=== PATIENT | female | born 1930 | race Caucasian/White ===

== ENCOUNTER 2021-02-13 01:53 | Inpatient (IN) | payer BC, OTHER ==
[2021-02-13 02:49] VITALS: BMI 28.3
[2021-02-13 04:19] LABS: BASO % 0.3 % (0-2.0); HEMATOCRIT 39.6 % (32.4-45.2); HEMOGLOBIN 13.1 GM/dL (10.7-15.3); LYMPH % 7.4 % (8-40); MCH 31.7 pg (25.7-33.7); MCHC 33.1 g/dl (32.0-36.0); MEAN CELL VOLUME 95.8 fl (80-96); MONO % 5.3 % (3.8-10.2); PLATELET COUNT 193 K/MM3 (134-434); RBC 4.14 M/mm3 (3.60-5.2); RDW 15.3 % (11.6-15.6); WHITE BLOOD COUNT 15.9 K/mm3 (4.0-10.0)
[2021-02-13 04:33] LABS: CHLORIDE 102 mmol/L (98-107); SODIUM 138 mmol/L (136-145)
[2021-02-13 04:35] LABS: CALCIUM 9.6 mg/dL (8.5-10.1)
[2021-02-13 04:36] LABS: ALBUMIN 3.8 g/dl (3.4-5.0); ANION GAP 4 MMOL/L (8-16); BLOOD UREA NITROGEN 30.1 mg/dL (7-18); CO2 31 mmol/L (21-32); INR 1.03 (0.83-1.09); MAGNESIUM 1.9 mg/dL (1.8-2.4); PROTHROMBIN TIME (PATIENT) 12.4 SEC (9.7-13.0)
[2021-02-13 04:39] LABS: ACTIVATED PTT 26.7 SECONDS (25.2-36.5); CREATININE 0.9 mg/dL (0.55-1.3); SGOT/AST 29 U/L (15-37); SGPT/ALT 23 U/L (13-61)
[2021-02-13 04:41] LABS: BILIRUBIN,TOTAL 0.6 mg/dL (0.2-1); TOT PROT 7.1 g/dl (6.4-8.2)
[2021-02-13 04:42] LABS: ALK PHOS 64 U/L (45-117)
[2021-02-13 04:49] LABS: GLUCOSE,RANDOM 137 mg/dL (74-106)
[2021-02-13 09:37] LABS: EPI CELLS 3 /uL (0-25.1); HYALINE CASTS 2 /uL (0-3.1); URINE APPEARANCE TURBID; URINE BACTERIA >9,000 /uL (0-1359); URINE BILIRUBIN NEGATIVE (NEGATIVE); URINE COLOR YELLOW; URINE GLUCOSE (UA) NEGATIVE (NEGATIVE); URINE KETONE NEGATIVE (NEGATIVE); URINE LEUK ESTERASE 3+ (NEGATIVE); URINE NITRITE NEGATIVE (NEGATIVE); URINE PROTEIN NEGATIVE (NEGATIVE); URINE RBC 17 /uL (0-23.9); URINE WBC 148 /uL (0-25.8)
[2021-02-13] MEDS: SODIUM CHLORIDE 1,000 ML IV SCH (13:58)
[2021-02-13] MEDS: LEVOTHYROXINE NA 75 MCG TABLET (FP) PO SCH (13:58)
[2021-02-13] MEDS: amLODIPine BESYLATE 2.5 MG TABLET (FP) PO SCH (14:01)
[2021-02-13] MEDS: metoPROLOL SUCCINATE 25 MG TAB.SR.24H (FP) PO SCH ×2 (14:02→21:13)
[2021-02-13] MEDS: ENOXAPARIN NA (PORCINE) 40 MG/0.4 ML DISP.SYRIN SQ SCH (14:02)
[2021-02-13] MEDS ORDERED: MELATONIN 5 MG TABLETS PO ONE (20:04)
[2021-02-13] MEDS: ATORVASTATIN CA 20 MG TABLET (FP) PO SCH (21:13)
[2021-02-13] MEDS: ACETAMINOPHEN 325 MG TABLET (FP) PO PRN (22:03)
[2021-02-14] MEDS: ACETAMINOPHEN 325 MG TABLET (FP) PO PRN (06:26)
[2021-02-14] MEDS: LEVOTHYROXINE NA 75 MCG TABLET (FP) PO SCH (06:27)
[2021-02-14 08:00] LABS: BASO % 0.3 % (0-2.0); EOS % 1.8 % (0-4.5); HEMATOCRIT 37.7 % (32.4-45.2); HEMOGLOBIN 12.6 GM/dL (10.7-15.3); LYMPH % 8.5 % (8-40); MCH 31.5 pg (25.7-33.7); MCHC 33.3 g/dl (32.0-36.0); MEAN CELL VOLUME 94.6 fl (80-96); MEAN PLT VOLUME 9.7 fl (7.5-11.1); MONO % 7.1 % (3.8-10.2); NEUT % 82.3 % (42.8-82.8); PLATELET COUNT 161 K/MM3 (134-434); RBC 3.99 M/mm3 (3.60-5.2); RDW 14.7 % (11.6-15.6); WHITE BLOOD COUNT 11.3 K/mm3 (4.0-10.0)
[2021-02-14 08:11] LABS: POTASSIUM 3.8 mmol/L (3.5-5.1)
[2021-02-14 08:15] LABS: CALCIUM 9.3 mg/dL (8.5-10.1)
[2021-02-14 08:16] LABS: BLOOD UREA NITROGEN 18.8 mg/dL (7-18); MAGNESIUM 2.2 mg/dL (1.8-2.4)
[2021-02-14 08:19] LABS: BILIRUBIN,TOTAL 1.2 mg/dL (0.2-1); CREATININE 0.8 mg/dL (0.55-1.3); PHOSPHOROUS 2.6 mg/dL (2.5-4.9); TOT PROT 6.4 g/dl (6.4-8.2)
[2021-02-14 08:22] LABS: ALBUMIN 3.3 g/dl (3.4-5.0)
[2021-02-14] MEDS: ENOXAPARIN NA (PORCINE) 40 MG/0.4 ML DISP.SYRIN SQ SCH (09:48)
[2021-02-14] MEDS: metoPROLOL SUCCINATE 25 MG TAB.SR.24H (FP) PO SCH ×2 (09:48→22:27)
[2021-02-14] MEDS: amLODIPine BESYLATE 2.5 MG TABLET (FP) PO SCH (09:48)
[2021-02-14] MEDS ORDERED: METOPROLOL TARTRATE 25 MG TABLET (FP) PO SCH (10:00)
[2021-02-14] MEDS ORDERED: metoPROLOL SUCCINATE 25 MG TAB.SR.24H (FP) PO SCH (10:00)
[2021-02-14] MEDS ORDERED: DEXTROSE 5%-WATER - 50 ML IVPB ONE (12:04)
[2021-02-14] MEDS ORDERED: cefTRIAXone SODIUM 1 GM VIAL ONE (12:04)
[2021-02-14] MEDS: CEFTRIAXONE 1 GM in DEXTROSE 5%-WATER - 50 ML IVPB SCH (12:10)
[2021-02-14] MEDS: SODIUM CHLORIDE 1,000 ML IV SCH (12:11)
[2021-02-14] MEDS: ATORVASTATIN CA 20 MG TABLET (FP) PO SCH (22:27)
[2021-02-15] MEDS: LEVOTHYROXINE NA 75 MCG TABLET (FP) PO SCH (06:33)
[2021-02-15 07:35] LABS: BASO % 0.3 % (0-2.0); HEMATOCRIT 34.2 % (32.4-45.2); HEMOGLOBIN 11.5 GM/dL (10.7-15.3); LYMPH % 10.7 % (8-40); MCH 31.8 pg (25.7-33.7); MCHC 33.7 g/dl (32.0-36.0); MEAN CELL VOLUME 94.5 fl (80-96); MEAN PLT VOLUME 10.4 fl (7.5-11.1); MONO % 9.6 % (3.8-10.2); NEUT % 77.4 % (42.8-82.8); PLATELET COUNT 154 K/MM3 (134-434); RBC 3.62 M/mm3 (3.60-5.2); RDW 14.6 % (11.6-15.6); WHITE BLOOD COUNT 9.3 K/mm3 (4.0-10.0)
[2021-02-15 07:50] LABS: POTASSIUM 3.9 mmol/L (3.5-5.1)
[2021-02-15 07:52] LABS: CALCIUM 8.8 mg/dL (8.5-10.1)
[2021-02-15 07:53] LABS: BLOOD UREA NITROGEN 15.5 mg/dL (7-18)
[2021-02-15 07:56] LABS: CREATININE 0.6 mg/dL (0.55-1.3)
[2021-02-15] MEDS ORDERED: cefTRIAXone SODIUM 1 GM VIAL ONE (10:05)
[2021-02-15] MEDS ORDERED: DEXTROSE 5%-WATER - 50 ML IVPB ONE (10:05)
[2021-02-15] MEDS: metoPROLOL SUCCINATE 25 MG TAB.SR.24H (FP) PO SCH ×2 (10:09→22:29)
[2021-02-15] MEDS: ACETAMINOPHEN 325 MG TABLET (FP) PO PRN (10:09)
[2021-02-15] MEDS: CEFTRIAXONE 1 GM in DEXTROSE 5%-WATER - 50 ML IVPB SCH (10:10)
[2021-02-15] MEDS: amLODIPine BESYLATE 2.5 MG TABLET (FP) PO SCH (10:12)
[2021-02-15] MEDS: ENOXAPARIN NA (PORCINE) 40 MG/0.4 ML DISP.SYRIN SQ SCH (10:12)
[2021-02-15] MEDS: SODIUM CHLORIDE 1,000 ML IV SCH (12:10)
[2021-02-15] MEDS ORDERED: MEROPENEM 1 GM in DEXTROSE 5%-WATER 100 ML IVPB ONE (13:16)
[2021-02-15] MEDS: ERTAPENEM SODIUM 1 GM in SODIUM CHLORIDE 50 ML IVPB SCH (17:20)
[2021-02-15] MEDS: ATORVASTATIN CA 20 MG TABLET (FP) PO SCH (22:29)
[2021-02-16] MEDS: ACETAMINOPHEN 325 MG TABLET (FP) PO PRN ×2 (05:30→21:52)
[2021-02-16] MEDS: LEVOTHYROXINE NA 75 MCG TABLET (FP) PO SCH (06:05)
[2021-02-16] MEDS: ENOXAPARIN NA (PORCINE) 40 MG/0.4 ML DISP.SYRIN SQ SCH (09:32)
[2021-02-16] MEDS: metoPROLOL SUCCINATE 25 MG TAB.SR.24H (FP) PO SCH ×2 (09:32→21:52)
[2021-02-16] MEDS: amLODIPine BESYLATE 2.5 MG TABLET (FP) PO SCH (09:32)
[2021-02-16] MEDS: ERTAPENEM SODIUM 1 GM in SODIUM CHLORIDE 50 ML IVPB SCH (09:32)
[2021-02-16 09:41] LABS: HEMATOCRIT 32.1 % (32.4-45.2); MCH 32.2 pg (25.7-33.7); MCHC 34.2 g/dl (32.0-36.0); MEAN CELL VOLUME 94.3 fl (80-96); MEAN PLT VOLUME 10.1 fl (7.5-11.1); PLATELET COUNT 163 K/MM3 (134-434); RBC 3.41 M/mm3 (3.60-5.2); RDW 14.3 % (11.6-15.6); WHITE BLOOD COUNT 8.3 K/mm3 (4.0-10.0)
[2021-02-16 11:25] LABS: POTASSIUM 3.9 mmol/L (3.5-5.1)
[2021-02-16 11:27] LABS: CALCIUM 8.6 mg/dL (8.5-10.1)
[2021-02-16 11:28] LABS: ALBUMIN 2.7 g/dl (3.4-5.0); BLOOD UREA NITROGEN 17.4 mg/dL (7-18)
[2021-02-16 11:31] LABS: CREATININE 0.6 mg/dL (0.55-1.3)
[2021-02-16 11:32] LABS: BILIRUBIN,TOTAL 0.8 mg/dL (0.2-1); TOT PROT 5.7 g/dl (6.4-8.2)
[2021-02-16] MEDS: SODIUM CHLORIDE 1,000 ML IV SCH (21:52)
[2021-02-16] MEDS: ATORVASTATIN CA 20 MG TABLET (FP) PO SCH (21:52)
[2021-02-17] MEDS: LEVOTHYROXINE NA 75 MCG TABLET (FP) PO SCH (08:20)
[2021-02-17 09:11] LABS: BASO % 0.5 % (0-2.0); HEMATOCRIT 31.2 % (32.4-45.2); HEMOGLOBIN 10.7 GM/dL (10.7-15.3); LYMPH % 11.7 % (8-40); MCH 32.1 pg (25.7-33.7); MCHC 34.2 g/dl (32.0-36.0); MEAN CELL VOLUME 93.8 fl (80-96); MEAN PLT VOLUME 9.7 fl (7.5-11.1); MONO % 14.7 % (3.8-10.2); NEUT % 70.1 % (42.8-82.8); PLATELET COUNT 182 K/MM3 (134-434); RBC 3.33 M/mm3 (3.60-5.2); RDW 14.5 % (11.6-15.6); WHITE BLOOD COUNT 7.9 K/mm3 (4.0-10.0)
[2021-02-17 09:25] LABS: POTASSIUM 4.2 mmol/L (3.5-5.1)
[2021-02-17 09:37] LABS: BLOOD UREA NITROGEN 15.2 mg/dL (7-18)
[2021-02-17 09:38] LABS: ALBUMIN 2.4 g/dl (3.4-5.0); BILIRUBIN,TOTAL 0.6 mg/dL (0.2-1); TOT PROT 5.5 g/dl (6.4-8.2)
[2021-02-17 09:39] LABS: CREATININE 0.5 mg/dL (0.55-1.3)
[2021-02-17 09:47] LABS: CALCIUM 8.5 mg/dL (8.5-10.1)
[2021-02-17] MEDS: ERTAPENEM SODIUM 1 GM in SODIUM CHLORIDE 50 ML IVPB SCH (10:21)
[2021-02-17] MEDS: amLODIPine BESYLATE 2.5 MG TABLET (FP) PO SCH (10:22)
[2021-02-17] MEDS: metoPROLOL SUCCINATE 25 MG TAB.SR.24H (FP) PO SCH ×2 (10:22→21:03)
[2021-02-17] MEDS: ENOXAPARIN NA (PORCINE) 40 MG/0.4 ML DISP.SYRIN SQ SCH (10:23)
[2021-02-17] MEDS: ACETAMINOPHEN 325 MG TABLET (FP) PO PRN (18:38)
[2021-02-17] MEDS: SODIUM CHLORIDE 1,000 ML IV SCH (18:38)
[2021-02-17] MEDS: ATORVASTATIN CA 20 MG TABLET (FP) PO SCH (21:03)
[2021-02-18] MEDS: LEVOTHYROXINE NA 75 MCG TABLET (FP) PO SCH (06:20)
[2021-02-18 08:43] LABS: BASO % 0.4 % (0-2.0); EOS % 2.4 % (0-4.5); HEMATOCRIT 29.8 % (32.4-45.2); HEMOGLOBIN 10.3 GM/dL (10.7-15.3); LYMPH % 12.4 % (8-40); MCH 32.3 pg (25.7-33.7); MCHC 34.6 g/dl (32.0-36.0); MEAN CELL VOLUME 93.3 fl (80-96); MONO % 13.8 % (3.8-10.2); PLATELET COUNT 212 K/MM3 (134-434); RBC 3.19 M/mm3 (3.60-5.2); RDW 14.4 % (11.6-15.6); WHITE BLOOD COUNT 8.4 K/mm3 (4.0-10.0)
[2021-02-18 09:13] LABS: BLOOD UREA NITROGEN 12.9 mg/dL (7-18); CALCIUM 8.6 mg/dL (8.5-10.1)
[2021-02-18 09:16] LABS: CREATININE 0.4 mg/dL (0.55-1.3)
[2021-02-18] MEDS: ENOXAPARIN NA (PORCINE) 40 MG/0.4 ML DISP.SYRIN SQ SCH (10:53)
[2021-02-18] MEDS: amLODIPine BESYLATE 2.5 MG TABLET (FP) PO SCH (11:35)
[2021-02-18] MEDS: SODIUM CHLORIDE 1,000 ML IV SCH (11:53)
[2021-02-18] MEDS: metoPROLOL SUCCINATE 25 MG TAB.SR.24H (FP) PO SCH ×2 (11:55→22:39)
[2021-02-18] MEDS: ERTAPENEM SODIUM 1 GM in SODIUM CHLORIDE 50 ML IVPB SCH (12:16)
[2021-02-18] MEDS: ATORVASTATIN CA 20 MG TABLET (FP) PO SCH (22:38)
[2021-02-19] MEDS: LEVOTHYROXINE NA 75 MCG TABLET (FP) PO SCH (06:32)
[2021-02-19] MEDS: amLODIPine BESYLATE 2.5 MG TABLET (FP) PO SCH (09:57)
[2021-02-19] MEDS: ENOXAPARIN NA (PORCINE) 40 MG/0.4 ML DISP.SYRIN SQ SCH (09:57)
[2021-02-19] MEDS: metoPROLOL SUCCINATE 25 MG TAB.SR.24H (FP) PO SCH ×2 (09:58→22:14)
[2021-02-19] MEDS: SODIUM CHLORIDE 1,000 ML IV SCH (13:28)
[2021-02-19] MEDS: ATORVASTATIN CA 20 MG TABLET (FP) PO SCH (22:14)
[2021-02-20] MEDS: LEVOTHYROXINE NA 75 MCG TABLET (FP) PO SCH (06:27)
[2021-02-20] MEDS: ACETAMINOPHEN 325 MG TABLET (FP) PO PRN (06:44)
[2021-02-20] MEDS: metoPROLOL SUCCINATE 25 MG TAB.SR.24H (FP) PO SCH (09:43)
[2021-02-20] MEDS: amLODIPine BESYLATE 2.5 MG TABLET (FP) PO SCH (09:43)
[2021-02-20] MEDS: ENOXAPARIN NA (PORCINE) 40 MG/0.4 ML DISP.SYRIN SQ SCH (09:43)
[2021-02-20 15:06] VITALS: BP 104/56; PULSE 69
[2021-02-20 18:27] VITALS: TEMP 98.7
== END 2021-02-20 18:00 | DRG 536 ==
LOC: JER 01:53 → JERBED 07:58 → J6WEST-2 11:17
PROVIDERS: ADMIT Internal Medicine; ATTEND Internal Medicine
DX: S32.502A Unspecified fracture of left pubis, initial encounter for closed fracture (principal); S52.92XA Unspecified fracture of left forearm, initial encounter for closed fracture; N39.0 Urinary tract infection, site not specified; Z16.12 Extended spectrum beta lactamase (ESBL) resistance; I10 Essential (primary) hypertension; E03.9 Hypothyroidism, unspecified; E78.5 Hyperlipidemia, unspecified; I25.10 Atherosclerotic heart disease of native coronary artery without angina pectoris; Z95.5 Presence of coronary angioplasty implant and graft; R00.1 Bradycardia, unspecified; B96.20 Unspecified Escherichia coli [E. coli] as the cause of diseases classified elsewhere; R55 Syncope and collapse; F03.90 Unspecified dementia, unspecified severity, without behavioral disturbance, psychotic disturbance, mood disturbance, and anxiety; I50.9 Heart failure, unspecified; E87.70 Fluid overload, unspecified; R07.9 Chest pain, unspecified; E11.65 Type 2 diabetes mellitus with hyperglycemia; W19.XXXA Unspecified fall, initial encounter; Y93.9 Activity, unspecified; Y92.89 Other specified places as the place of occurrence of the external cause; Y99.9 Unspecified external cause status
CPT/HCPCS: 36415; 70450-TC; 71045-TC-FY; 72125-TC; 72131-TC; 72170-TC-FY; 72192-TC; 73110-TC-LT-FY; 73130-TC-LT-FY; 73502-TC-LT-FY; 73562-TC-LT-FY; 73590-TC-LT-FY; 73610-TC-LT-FY; 73630-TC-LT; 80048; 80053; 81003; 82550; 83735; 84100; 84484; 85025; 85027; 85610; 85730; 87040; 87086; 87186; 93005; 93010; 93306-TC; 93880-TC; 97116-GP; 97162-GP; 99285-25; C9803; U0003; U0005

== ENCOUNTER 2021-07-13 11:58 | Observation (INO) | payer OTHER, BC ==
[2021-07-13 13:51] LABS: BASO % 0.9 % (0-2.0); EOS % 3.2 % (0-4.5); HEMATOCRIT 32.9 % (32.4-45.2); HEMOGLOBIN 11.1 GM/dL (10.7-15.3); LYMPH % 14.2 % (8-40); MCH 31.4 pg (25.7-33.7); MCHC 33.8 g/dl (32.0-36.0); MEAN CELL VOLUME 92.7 fl (80-96); MEAN PLT VOLUME 8.5 fl (7.5-11.1); MONO % 8.8 % (3.8-10.2); NEUT % 72.9 % (42.8-82.8); PLATELET COUNT 324 10^3/uL (134-434); RBC 3.55 M/mm3 (3.60-5.2); RDW 14.5 % (11.6-15.6); WHITE BLOOD COUNT 7.1 K/mm3 (4.0-10.0)
[2021-07-13 14:13] LABS: CHLORIDE 108 mmol/L (98-107); SODIUM 140 mmol/L (136-145)
[2021-07-13 14:15] LABS: BLOOD UREA NITROGEN 23.6 mg/dL (7-18)
[2021-07-13 14:16] LABS: ALBUMIN 3.1 g/dl (3.4-5.0); ANION GAP 4 MMOL/L (8-16); CO2 28 mmol/L (21-32); GLUCOSE,RANDOM 115 mg/dL (74-106)
[2021-07-13 14:18] LABS: SGPT/ALT 16 U/L (13-61)
[2021-07-13 14:19] LABS: CREATININE 0.7 mg/dL (0.55-1.3); SGOT/AST 29 U/L (15-37)
[2021-07-13 14:20] LABS: BILIRUBIN,TOTAL 0.4 mg/dL (0.2-1); TOT PROT 6.5 g/dl (6.4-8.2)
[2021-07-13 14:22] LABS: ALK PHOS 65 U/L (45-117)
[2021-07-13] MEDS ORDERED: ATORVASTATIN CA 80 MG TABLET (FP) PO ONE (18:31)
[2021-07-13] MEDS ORDERED: ZOLPIDEM TARTRATE 5 MG TABLET PO PRN (18:31)
[2021-07-13] MEDS ORDERED: IPRATROPIUM BR 0.02% 0.5 MG/2.5 ML VIAL.NEB. NEB ONE (19:20)
[2021-07-13] MEDS ORDERED: ATORVASTATIN CA 80 MG TABLET (FP) ONE (19:20)
[2021-07-13] MEDS: IPRATROPIUM BR 0.02% 0.5 MG/2.5 ML VIAL.NEB. NEB SCH (20:07)
[2021-07-13] MEDS ORDERED: HEPARIN NA (PORCINE) 5,000 UNITS/ML 1ML VIAL ONE (22:09)
[2021-07-13] MEDS: HEPARIN NA (PORCINE) 5,000 UNITS/ML 1ML VIAL SQ SCH (22:17)
[2021-07-13] MEDS ORDERED: ZOLPIDEM TARTRATE 5 MG TABLET ONE (22:18)
[2021-07-13] MEDS: EZETIMIBE 10 MG TABLET (FP) PO SCH (22:47)
[2021-07-14 04:25] VITALS: BMI 27.9
[2021-07-14] MEDS: LEVOTHYROXINE NA 75 MCG TABLET (FP) PO SCH (06:46)
[2021-07-14] MEDS: HEPARIN NA (PORCINE) 5,000 UNITS/ML 1ML VIAL SQ SCH ×3 (06:46→21:01)
[2021-07-14 06:50] LABS: BASO % 1.2 % (0-2.0); HEMATOCRIT 33.5 % (32.4-45.2); HEMOGLOBIN 11.2 GM/dL (10.7-15.3); LYMPH % 24.5 % (8-40); MCHC 33.5 g/dl (32.0-36.0); MEAN CELL VOLUME 92.4 fl (80-96); MEAN PLT VOLUME 8.4 fl (7.5-11.1); MONO % 11.8 % (3.8-10.2); NEUT % 56.5 % (42.8-82.8); PLATELET COUNT 303 10^3/uL (134-434); RBC 3.62 M/mm3 (3.60-5.2); RDW 14.3 % (11.6-15.6); WHITE BLOOD COUNT 4.7 K/mm3 (4.0-10.0)
[2021-07-14 07:22] LABS: BLOOD UREA NITROGEN 17.7 mg/dL (7-18); CALCIUM 8.9 mg/dL (8.5-10.1); MAGNESIUM 2.1 mg/dL (1.8-2.4)
[2021-07-14 07:24] LABS: BILIRUBIN,TOTAL 0.3 mg/dL (0.2-1)
[2021-07-14 07:25] LABS: CREATININE 0.6 mg/dL (0.55-1.3); TOT PROT 6.2 g/dl (6.4-8.2)
[2021-07-14 07:26] LABS: PHOSPHOROUS 2.8 mg/dL (2.5-4.9)
[2021-07-14] MEDS: IPRATROPIUM BR 0.02% 0.5 MG/2.5 ML VIAL.NEB. NEB SCH ×2 (07:32→19:30)
[2021-07-14] MEDS: ASPIRIN 81 MG CHEWABLE TABLETS PO SCH (09:01)
[2021-07-14] MEDS: CLOPIDOGREL BISULFATE 75 MG TABLET (FP) PO SCH (09:01)
[2021-07-14] MEDS ORDERED: PT OWN MED DRAWER 7, Y5N ONE (12:57)
[2021-07-14] MEDS: EZETIMIBE 10 MG TABLET (FP) PO SCH (21:01)
[2021-07-14] MEDS ORDERED: ZOLPIDEM TARTRATE 5 MG TABLET PO ONE (22:08)
[2021-07-15] MEDS: LEVOTHYROXINE NA 75 MCG TABLET (FP) PO SCH (06:23)
[2021-07-15] MEDS: HEPARIN NA (PORCINE) 5,000 UNITS/ML 1ML VIAL SQ SCH (06:23)
[2021-07-15] MEDS: CLOPIDOGREL BISULFATE 75 MG TABLET (FP) PO SCH (09:22)
[2021-07-15] MEDS: ASPIRIN 81 MG CHEWABLE TABLETS PO SCH (09:22)
[2021-07-15 11:51] LABS: EPI CELLS 14 /uL (0-25.1); HYALINE CASTS 2 /uL (0-3.1); URINE APPEARANCE CLOUDY; URINE BACTERIA 20 /uL (0-1359); URINE BILIRUBIN NEGATIVE (NEGATIVE); URINE COLOR DK YELLOW; URINE GLUCOSE (UA) NEGATIVE (NEGATIVE); URINE KETONE NEGATIVE (NEGATIVE); URINE LEUK ESTERASE TRACE (NEGATIVE); URINE NITRITE NEGATIVE (NEGATIVE); URINE PROTEIN NEGATIVE (NEGATIVE); URINE RBC 9 /uL (0-23.9); URINE WBC 25 /uL (0-25.8)
[2021-07-15 14:03] VITALS: BP 112/57; PULSE 75; TEMP 97.6
== END 2021-07-15 15:39 | disposition home or self-care (01) ==
LOC: JER 11:58 → UNDOADMOB 17:18 → INTOOBSV 17:18 → JERBED 17:18 → J4S 22:31 → JERBED 22:31 → UNDODISOB 07-15 15:39
PROVIDERS: ADMIT Student in an Organized Health Care Education/Training Program; ATTEND Nurse Practitioner Family
PROC: 3E023GC Introduction of Other Therapeutic Substance into Muscle, Percutaneous Approach (ICD-10-PCS; principal; 2021-07-13)
PROC: 3E0F7GC Introduction of Other Therapeutic Substance into Respiratory Tract, Via Natural or Artificial Opening (ICD-10-PCS; 2021-07-13)
DX: I25.10 Atherosclerotic heart disease of native coronary artery without angina pectoris (principal); I11.9 Hypertensive heart disease without heart failure; Z88.0 Allergy status to penicillin; Z87.81 Personal history of (healed) traumatic fracture; N39.0 Urinary tract infection, site not specified; Z91.013 Allergy to seafood; E78.5 Hyperlipidemia, unspecified; R29.6 Repeated falls; R94.31 Abnormal electrocardiogram [ECG] [EKG]
CPT/HCPCS: 36415; 71045-TC-FY; 71260-TC; 73110-TC-RT-FY; 73130-TC-RT-FY; 73590-TC-LT-FY; 74177-TC; 80053; 80061; 81003; 83735; 84100; 84443; 84484; 85025; 93005; 93010; 94640; 96372; 97116-GP; 97162-GP; 99285-25; C9803; G0378; J1644; Q9967; U0003; U0005

== ENCOUNTER 2022-01-07 13:36 | Inpatient (IN) | payer OTHER, BC ==
[2022-01-07 15:37] LABS: EPI CELLS 7 /uL (0-25.1); HYALINE CASTS 1 /uL (0-3.1); URINE APPEARANCE CLOUDY; URINE BACTERIA 7620 /uL (0-1359); URINE BILIRUBIN NEGATIVE (NEGATIVE); URINE COLOR YELLOW; URINE GLUCOSE (UA) NEGATIVE (NEGATIVE); URINE KETONE NEGATIVE (NEGATIVE); URINE LEUK ESTERASE 3+ (NEGATIVE); URINE NITRITE NEGATIVE (NEGATIVE); URINE PROTEIN TRACE (NEGATIVE); URINE RBC 8 /uL (0-23.9); URINE UROBILINOGEN 0.2 mg/dL (0.2-1.0); URINE WBC 684 /uL (0-25.8)
[2022-01-07 15:53] LABS: HEMATOCRIT 40.9 % (32.4-45.2); HEMOGLOBIN 13.5 GM/dL (10.7-15.3); MCH 30.5 pg (25.7-33.7); MCHC 32.9 g/dl (32.0-36.0); MEAN CELL VOLUME 92.6 fl (80-96); MEAN PLT VOLUME 9.6 fl (7.5-11.1); PLATELET COUNT 166 10^3/uL (134-434); RBC 4.41 M/mm3 (3.60-5.2); RDW 15.8 % (11.6-15.6); WHITE BLOOD COUNT 19.4 K/mm3 (4.0-10.0)
[2022-01-07 16:56] LABS: CHLORIDE 105 mmol/L (98-107); SODIUM 141 mmol/L (136-145)
[2022-01-07 16:58] LABS: CALCIUM 11.2 mg/dL (8.5-10.1)
[2022-01-07 16:59] LABS: ALBUMIN 3.9 g/dl (3.4-5.0); ANION GAP 6 MMOL/L (8-16); BLOOD UREA NITROGEN 27.9 mg/dL (7-18); CO2 29 mmol/L (21-32); GLUCOSE,RANDOM 83 mg/dL (74-106)
[2022-01-07 17:01] LABS: SGPT/ALT 22 U/L (13-61)
[2022-01-07 17:02] LABS: SGOT/AST 47 U/L (15-37)
[2022-01-07 17:03] LABS: BILIRUBIN,TOTAL 0.5 mg/dL (0.2-1); TOT PROT 7.4 g/dl (6.4-8.2)
[2022-01-07] MEDS ORDERED: CEFTRIAXONE 1,000 MG in DEXTROSE 5%-WATER - 50 ML IVPB ONE (17:03)
[2022-01-07] MEDS ORDERED: SODIUM CHLORIDE 0.9% 500 ML INFUS.BAG IV ONE (17:03)
[2022-01-07 17:04] LABS: ALK PHOS 62 U/L (45-117)
[2022-01-07] MEDS ORDERED: CEFTRIAXONE 1 GM/50 ML BAG ONE (17:35)
[2022-01-07] MEDS ORDERED: ASPIRIN 325 MG ENTERIC COATED TABLET (FP) PO ONE (19:10)
[2022-01-07] MEDS ORDERED: ASPIRIN 325 MG ENTERIC COATED TABLET (FP) ONE (20:08)
[2022-01-07 20:33] LABS: PLATELET ESTIMATE ADEQUATE
[2022-01-07] MEDS ORDERED: LIDOCAINE 5% TOPICAL PATCH ONE (21:45)
[2022-01-07] MEDS ORDERED: ERTAPENEM SODIUM 1 GM VIAL ONE (21:46)
[2022-01-07] MEDS: LIDOCAINE PATCH REMOVAL MC SCH (21:58)
[2022-01-07] MEDS: SODIUM CHLORIDE 1,000 ML IV SCH (21:58)
[2022-01-07] MEDS: ERTAPENEM SODIUM 1 GM in SODIUM CHLORIDE 50 ML IVPB SCH (21:58)
[2022-01-07] MEDS: LIDOCAINE 5% TOPICAL PATCH TP SCH (21:58)
[2022-01-07] MEDS ORDERED: ACETAMINOPHEN 325 MG TABLET (FP) ONE (22:31)
[2022-01-07] MEDS: ACETAMINOPHEN 325 MG TABLET (FP) PO PRN (22:35)
[2022-01-07 22:38] LABS: INR 1.12 (0.83-1.09); PROTHROMBIN TIME (PATIENT) 12.9 SEC (9.7-13.0)
[2022-01-07 22:41] LABS: ACTIVATED PTT 20.4 SECONDS (25.2-36.5)
[2022-01-08 01:33] VITALS: BMI 28.0
[2022-01-08] MEDS: ACETAMINOPHEN 325 MG TABLET (FP) PO PRN ×2 (06:18→23:30)
[2022-01-08] MEDS: LEVOTHYROXINE NA 75 MCG TABLET (FP) PO SCH (06:18)
[2022-01-08 07:55] LABS: BASO % 0.3 % (0-2.0); EOS % 0.5 % (0-4.5); HEMATOCRIT 36.9 % (32.4-45.2); HEMOGLOBIN 12.6 GM/dL (10.7-15.3); LYMPH % 4.8 % (8-40); MCH 31.8 pg (25.7-33.7); MEAN CELL VOLUME 93.4 fl (80-96); MEAN PLT VOLUME 9.6 fl (7.5-11.1); MONO % 9.1 % (3.8-10.2); NEUT % 85.3 % (42.8-82.8); PLATELET COUNT 121 10^3/uL (134-434); RBC 3.96 M/mm3 (3.60-5.2); RDW 16.2 % (11.6-15.6); WHITE BLOOD COUNT 13.1 K/mm3 (4.0-10.0)
[2022-01-08 08:30] LABS: BILIRUBIN,TOTAL 0.7 mg/dL (0.2-1); BLOOD UREA NITROGEN 25.2 mg/dL (7-18); CREATININE 0.9 mg/dL (0.55-1.3); MAGNESIUM 2.2 mg/dL (1.8-2.4)
[2022-01-08 08:31] LABS: ALBUMIN 3.2 g/dl (3.4-5.0); TOT PROT 6.2 g/dl (6.4-8.2)
[2022-01-08 08:38] LABS: CALCIUM 9.2 mg/dL (8.5-10.1)
[2022-01-08] MEDS: LIDOCAINE 5% TOPICAL PATCH TP SCH (10:51)
[2022-01-08] MEDS: ERTAPENEM SODIUM 1 GM in SODIUM CHLORIDE 50 ML IVPB SCH (13:51)
[2022-01-08] MEDS: CLOPIDOGREL BISULFATE 75 MG TABLET (FP) PO SCH (18:40)
[2022-01-08] MEDS: ASPIRIN 81 MG CHEWABLE TABLETS PO SCH (18:41)
[2022-01-08] MEDS: EZETIMIBE 10 MG TABLET (FP) PO SCH (21:37)
[2022-01-08] MEDS: LIDOCAINE PATCH REMOVAL MC SCH (21:38)
[2022-01-08] MEDS: SODIUM CHLORIDE 1,000 ML IV SCH (23:32)
[2022-01-09] MEDS: LEVOTHYROXINE NA 75 MCG TABLET (FP) PO SCH (06:02)
[2022-01-09] MEDS: ASPIRIN 81 MG CHEWABLE TABLETS PO SCH (09:20)
[2022-01-09] MEDS: CLOPIDOGREL BISULFATE 75 MG TABLET (FP) PO SCH (09:20)
[2022-01-09] MEDS: LIDOCAINE 5% TOPICAL PATCH TP SCH ×2 (09:20→15:36)
[2022-01-09] MEDS: ERTAPENEM SODIUM 1 GM in SODIUM CHLORIDE 50 ML IVPB SCH (09:21)
[2022-01-09] MEDS: EZETIMIBE 10 MG TABLET (FP) PO SCH (21:15)
[2022-01-09] MEDS: CEPHALEXIN MONOHYDRATE 500 MG CAPSULE (UD) PO SCH (21:16)
[2022-01-09] MEDS: LIDOCAINE PATCH REMOVAL MC SCH (21:16)
[2022-01-10] MEDS: LEVOTHYROXINE NA 75 MCG TABLET (FP) PO SCH (06:12)
[2022-01-10] MEDS: ASPIRIN 81 MG CHEWABLE TABLETS PO SCH (09:33)
[2022-01-10] MEDS: CLOPIDOGREL BISULFATE 75 MG TABLET (FP) PO SCH (09:34)
[2022-01-10] MEDS: LIDOCAINE 5% TOPICAL PATCH TP SCH ×3 (09:34→10:47)
[2022-01-10] MEDS: CEPHALEXIN MONOHYDRATE 500 MG CAPSULE (UD) PO SCH ×2 (09:34→21:28)
[2022-01-10] MEDS ORDERED: CEFTRIAXONE 1 GM in DEXTROSE 5%-WATER - 50 ML IVPB SCH (10:00)
[2022-01-10 15:31] LABS: BASO % 0.6 % (0-2.0); EOS % 4.2 % (0-4.5); HEMATOCRIT 37.9 % (32.4-45.2); HEMOGLOBIN 12.5 GM/dL (10.7-15.3); MCH 30.3 pg (25.7-33.7); MCHC 33.1 g/dl (32.0-36.0); MEAN CELL VOLUME 91.6 fl (80-96); MEAN PLT VOLUME 9.5 fl (7.5-11.1); MONO % 15.8 % (3.8-10.2); NEUT % 60.4 % (42.8-82.8); PLATELET COUNT 182 10^3/uL (134-434); RBC 4.14 M/mm3 (3.60-5.2); RDW 15.2 % (11.6-15.6); WHITE BLOOD COUNT 5.2 K/mm3 (4.0-10.0)
[2022-01-10 16:28] LABS: BILIRUBIN,TOTAL 0.4 mg/dL (0.2-1); BLOOD UREA NITROGEN 20.2 mg/dL (7-18); CALCIUM 9.5 mg/dL (8.5-10.1); CREATININE 0.7 mg/dL (0.55-1.3); MAGNESIUM 2.4 mg/dL (1.8-2.4); TOT PROT 6.3 g/dl (6.4-8.2)
[2022-01-10] MEDS: metoPROLOL SUCCINATE 25 MG TAB.SR.24H (FP) PO SCH (17:40)
[2022-01-10] MEDS: LIDOCAINE PATCH REMOVAL MC SCH (21:28)
[2022-01-10] MEDS: EZETIMIBE 10 MG TABLET (FP) PO SCH (21:28)
[2022-01-11] MEDS: LEVOTHYROXINE NA 75 MCG TABLET (FP) PO SCH (06:12)
[2022-01-11 08:27] LABS: BASO % 0.5 % (0-2.0); EOS % 4.1 % (0-4.5); HEMATOCRIT 35.8 % (32.4-45.2); HEMOGLOBIN 12.4 GM/dL (10.7-15.3); LYMPH % 19.5 % (8-40); MCH 31.4 pg (25.7-33.7); MCHC 34.6 g/dl (32.0-36.0); MEAN CELL VOLUME 90.7 fl (80-96); MEAN PLT VOLUME 9.7 fl (7.5-11.1); MONO % 14.2 % (3.8-10.2); NEUT % 61.7 % (42.8-82.8); PLATELET COUNT 177 10^3/uL (134-434); RBC 3.95 M/mm3 (3.60-5.2); WHITE BLOOD COUNT 5.3 K/mm3 (4.0-10.0)
[2022-01-11 08:42] LABS: ALBUMIN 2.9 g/dl (3.4-5.0); BLOOD UREA NITROGEN 18.9 mg/dL (7-18); MAGNESIUM 2.3 mg/dL (1.8-2.4)
[2022-01-11 08:45] LABS: CREATININE 0.6 mg/dL (0.55-1.3)
[2022-01-11 08:47] LABS: BILIRUBIN,TOTAL 0.5 mg/dL (0.2-1)
[2022-01-11] MEDS: metoPROLOL SUCCINATE 25 MG TAB.SR.24H (FP) PO SCH (09:53)
[2022-01-11] MEDS: LIDOCAINE 5% TOPICAL PATCH TP SCH (09:53)
[2022-01-11] MEDS: ASPIRIN 81 MG CHEWABLE TABLETS PO SCH (09:53)
[2022-01-11] MEDS: CEPHALEXIN MONOHYDRATE 500 MG CAPSULE (UD) PO SCH (09:53)
[2022-01-11] MEDS: CLOPIDOGREL BISULFATE 75 MG TABLET (FP) PO SCH (09:53)
[2022-01-11 14:23] VITALS: BP 128/66; PULSE 64; TEMP 98.5
== END 2022-01-11 15:03 | disposition home or self-care (01) | DRG 690 ==
LOC: JER 13:36 → JERBED 19:53 → J4S 23:22
PROVIDERS: ADMIT Internal Medicine; ATTEND Nurse Practitioner Family
DX: N39.0 Urinary tract infection, site not specified (principal); I47.1 Supraventricular tachycardia; I24.8 Other forms of acute ischemic heart disease; S40.021A Contusion of right upper arm, initial encounter; S40.011A Contusion of right shoulder, initial encounter; I10 Essential (primary) hypertension; E03.9 Hypothyroidism, unspecified; I25.2 Old myocardial infarction; I35.0 Nonrheumatic aortic (valve) stenosis; J45.909 Unspecified asthma, uncomplicated; E83.52 Hypercalcemia; M17.11 Unilateral primary osteoarthritis, right knee; R74.8 Abnormal levels of other serum enzymes; I44.7 Left bundle-branch block, unspecified; R77.8 Other specified abnormalities of plasma proteins; S80.211A Abrasion, right knee, initial encounter; W06.XXXA Fall from bed, initial encounter; B96.4 Proteus (mirabilis) (morganii) as the cause of diseases classified elsewhere; Y92.003 Bedroom of unspecified non-institutional (private) residence as the place of occurrence of the external cause; Z88.0 Allergy status to penicillin
CPT/HCPCS: 36415; 70450-TC; 70486-TC; 71045-TC-FY; 72125-TC; 72170-TC-FY; 73030-TC-RT-FY; 73502-TC-RT-FY; 73562-TC-RT-FY; 73700-TC-RT; 80053; 80061; 81003; 82550; 82553; 83735; 84100; 84443; 84484; 85025; 85610; 85730; 87040; 87086; 87186; 93005; 93010; 93306-TC; 93880-TC; 97116-GP; 97161-GP; 99285-25; C9803; U0003; U0005

== ENCOUNTER 2022-03-06 11:20 | Emergency (ER) | payer OTHER, BC ==
[2022-03-06 11:40] VITALS: BP 119/57; PULSE 91; TEMP 97; BMI 28.5
== END 2022-03-06 15:34 | disposition home or self-care (01) ==
LOC: JER 11:20
DX: S00.03XA Contusion of scalp, initial encounter (principal); W01.0XXA Fall on same level from slipping, tripping and stumbling without subsequent striking against object, initial encounter
CPT/HCPCS: 70450-TC; 71045-TC-FY; 72125-TC; 72170-TC-FY; 99285-25